=== PATIENT | male | born 2000 | race Caucasian/White ===

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

== ENCOUNTER 2023-08-20 00:18 | Emergency (ER) | payer SELFPAY ==
[~2023-08-20] VITALS: Ht 185 cm; Wt 89.2 kg
[~2023-08-20 00:18] MED LIST: BACTRIM DS 8001 TAB PO
[2023-08-20 00:24] VITALS: TEMP 97.8
[2023-08-20] MEDS ORDERED: diphenhydrAMINE 50 MG/ML 1 ML VIAL IV ONE (00:45)
[2023-08-20] MEDS ORDERED: methylPREDNISolone Sod Succ 125 MG/2 ML VIAL IV ONE (00:45)
[2023-08-20] MEDS ORDERED: predniSONE 50 MG,predniSONE 10 MG PO ONE (01:45)
[2023-08-20 01:46] VITALS: BP 122/74; PULSE 60
== END 2023-08-20 01:46 | disposition home or self-care (01) ==
LOC: COL.ER 00:18
DX: L50.9 Urticaria, unspecified (principal); F17.290 Nicotine dependence, other tobacco product, uncomplicated
CPT/HCPCS: J1200; J2919; J7512